=== PATIENT | female | born 1975 | race Two or more races ===

== ENCOUNTER → 2016-11-27 | Outpatient (CLI) | payer OTHER | END | disposition home or self-care (01) | LOC: CFH 15:07 | PROVIDERS: ATTEND Family Medicine | DX: Z12.31 Encounter for screening mammogram for malignant neoplasm of breast (principal) | CPT/HCPCS: 77063; G0202 ==

== ENCOUNTER 2017-12-18 09:41 | Day surgery (SDC) | payer OTHER ==
[2017-12-15 13:39] LABS: BASOPHILS # (AUTO) 0.04 x10^3/uL (0-0.1); BASOPHILS % (AUTO) 1 % (0-1); EOSINOPHILS # (AUTO) 0.11 x10^3/uL (0-0.4); EOSINOPHILS % (AUTO) 1 % (1-7); LYMPHOCYTES # (AUTO) 2.24 x10^3/uL (1-3.4); LYMPHOCYTES % (AUTO) 27 % (22-44); MD NO; MEAN CORPUSCULAR HEMOGLOBIN 33.8 pg (27.0-34.8); MEAN CORPUSCULAR HGB CONC 33.6 g/dL (32.4-35.8); MEAN CORPUSCULAR VOLUME 100.6 fL (80-100); MEAN PLATELET VOLUME 7.3 fL (7.4-10.4); MONOCYTES # (AUTO) 0.46 x10^3/uL (0.2-0.8); MONOCYTES % (AUTO) 6 % (2-9); NEUTROPHILS % (AUTO) 66 % (42-75); PLATELET COUNT 231 x10^3/uL (130-400); RED BLOOD COUNT 3.93 x10^6/uL (3.82-5.3); RED CELL DISTRIBUTION WIDTH 13.6 % (9.6-15.2)
[2017-12-15 13:43] LABS: CULTURE INDICATED? YES; MICROSCOPIC INDICATED
[~2017-12-18] VITALS: Ht 162.6 cm; Wt 66.6 kg
[~2017-12-18 09:41] MED LIST: None at this Time
[2017-12-18] MEDS ORDERED: LACTATED RINGERS 1,000 ML IV SCH (10:05)
[2017-12-18 10:29] VITALS: BP 110/70
[2017-12-18] MEDS ORDERED: GABAPENTIN 300 MG CAPSULE PO ONE (10:30)
[2017-12-18] MEDS ORDERED: ACETAMINOPHEN 500 MG TABLET PO ONE (10:30)
[2017-12-18] MEDS ORDERED: BUPIVACAINE/PF-EPI 0.25% 1:200K ONE (11:25)
[2017-12-18] MEDS ORDERED: SILVER NITRATE STICK TP ONE (11:26)
[2017-12-18] MEDS ORDERED: ONDANSETRON 2MG/ML, 2ML ONE (11:47)
[2017-12-18] MEDS ORDERED: ROCURONIUM 10 MG/ML,10ML ONE (11:47)
[2017-12-18] MEDS ORDERED: KETOROLAC 30 MG/1 ML ONE (11:47)
[2017-12-18] MEDS ORDERED: CEFAZOLIN 1,000 MG ONE (11:47)
[2017-12-18] MEDS ORDERED: NEOSTIGMINE 1 MG/ML, 10ML ONE (11:47)
[2017-12-18] MEDS ORDERED: DEXAMETHASONE 4 MG/ML, 1ML ONE (11:47)
[2017-12-18] MEDS ORDERED: PROPOFOL 10 MG/ML, 20ML ONE (11:47)
[2017-12-18] MEDS ORDERED: GLYCOPYRROLATE 0.2MG/1ML, 5ML ONE (11:47)
[2017-12-18] MEDS ORDERED: ENOXAPARIN 40 MG/0.4 ML SQ ONE (12:00)
[2017-12-18] MEDS ORDERED: ONDANSETRON ODT 8 MG PO PRN (12:30)
[2017-12-18] MEDS ORDERED: PROMETHAZINE 25 MG/ML, 1ML IV PRN (12:30)
[2017-12-18] MEDS ORDERED: ONDANSETRON 2MG/ML, 2ML IV PRN (12:30)
[2017-12-18] MEDS ORDERED: FENTANYL PF 100 MCG/2ML IV PRN (12:30)
[2017-12-18] MEDS ORDERED: ACETAMINOPHEN 325 MG TABLET PO PRN (12:30)
[2017-12-18] MEDS ORDERED: OXYcodone 5 MG/5 ML ORAL.SOL UDC PO PRN (12:30)
[2017-12-18] MEDS ORDERED: MORPHINE SULFATE 4 MG/ML, 1ML IVPush PRN (12:30)
[2017-12-18] MEDS ORDERED: NEOSPORIN OINT, 15GM ONE (13:01)
[2017-12-18] MEDS ORDERED: OXYcodone 5 MG/5 ML ORAL.SOL UDC ONE (13:24)
== END 2017-12-18 15:15 | disposition home or self-care (01) ==
LOC: OUT 09:41
PROVIDERS: ATTEND Obstetrics & Gynecology
DX: Z30.2 Encounter for sterilization (principal); N94.10 Unspecified dyspareunia; N90.60 Unspecified hypertrophy of vulva; Z98.890 Other specified postprocedural states; Z90.49 Acquired absence of other specified parts of digestive tract
CPT/HCPCS: 36415; 56620; 58670; 81001; 84702; 85025; 87086; 88302; J0690; J1100; J1650; J1885; J2250; J2405; J2704; J2710; J3010; J3490; J7120

== ENCOUNTER → 2018-02-18 | Outpatient (CLI) | payer OTHER | END | disposition home or self-care (01) | LOC: CFH 14:25 | PROVIDERS: ATTEND Obstetrics & Gynecology | DX: Z12.31 Encounter for screening mammogram for malignant neoplasm of breast (principal) | CPT/HCPCS: 77067 ==

== ENCOUNTER 2020-06-07 18:54 | Emergency (ER) | payer OTHER ==
[~2020-06-07] VITALS: Ht 165.1 cm; Wt 78.0 kg
[2020-06-07 18:56] VITALS: BP 133/67
--- NOTE | 2020-06-07 19:21 | NUR ---
pt in bed. [facility]-. pt states she has a 10/ 10 ESTES
[2020-06-07] MEDS ORDERED: METOCLOPRAMIDE 5 MG/ML, 2ML IVPush ONE (19:30)
[2020-06-07] MEDS ORDERED: SODIUM CHLORIDE FLUSH 10ML SYR IVF ONE (19:30)
[2020-06-07] MEDS ORDERED: DIPHENHYDRAMINE 50 MG/ML, 1ML IVPush ONE (19:30)
[2020-06-07] MEDS ORDERED: DIPHENHYDRAMINE 50 MG/ML, 1ML ONE (19:36)
[2020-06-07] MEDS ORDERED: METOCLOPRAMIDE 5 MG/ML, 2ML ONE (19:36)
--- NOTE | 2020-06-07 19:50 | NUR ---
pt refused iv. aware
--- NOTE | 2020-06-07 19:58 | NUR ---
pt refusing iv. in room to attempt after 2 unsuccessful attempts by primary. pt refusing to allow iv start. provider made aware. pt agreeable to im medications. benadryl witheld due to pt not having any ride home.
[2020-06-07] MEDS ORDERED: KETOROLAC 30 MG/1 ML ONE (19:59)
[2020-06-07] MEDS ORDERED: KETOROLAC 30 MG/1 ML IM ONE (20:00)
--- NOTE | 2020-06-07 21:05 | NUR ---
pt walked out self with steady gait. rx given, if s&s worsen return to er.
== END 2020-06-07 21:11 | disposition home or self-care (01) ==
LOC: ED 20:55
DX: G44.219 Episodic tension-type headache, not intractable (principal)
CPT/HCPCS: 96372; 99283; J1885